=== PATIENT | male | born 1960 | race Caucasian/White ===

== ENCOUNTER 2019-12-10 14:20 | Emergency (ER) | payer OTHER, SELFPAY ==
[2019-12-10 14:25] VITALS: BP 164/84; PULSE 69; RESP 18; TEMP 36.6; O2SAT 99; BMI 31.1
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
--- NOTE | 2019-12-10 15:05 | DI.RAD.S_ITS ---
PROCEDURE: XR CHEST 1V INDICATIONS: elevated blood sugar TECHNIQUE: One view of the chest was acquired. COMPARISON: None. FINDINGS: Surgical changes and devices: None. Lungs and pleura: Lungs are clear. No pleural effusions or pneumothorax. Mediastinum: Mediastinal contours appear normal. Heart size is normal. Bones and chest wall: No suspicious bony lesions. Overlying soft tissues appear unremarkable. Degenerative changes of the spine and shoulders are not adequately evaluated. IMPRESSION: No acute cardiopulmonary process is evident. Dictated by: Hakeem Damon M.D. on 12/10/2019 at 14:56 Approved by: Hakeem Damon M.D. on 12/10/2019 at 14:56
--- NOTE | 2019-12-10 15:16 | PC.NURSE ---
Patient in room with DENTON Lujan. Right hand is swollen, red, and tender to touch. Bitten by Granddaughter's kitten yesterday. Kitten 6 months old and has not had its' shots.
[2019-12-10] MEDS: SODIUM CHLORIDE 0.9% 1,000 ML 1000 ML IV (15:26)
[2019-12-10 15:28] LABS: Add Manual Diff / Slide Review NO; Basophils Absolute Auto 0 /uL (0-100); Basophils Percent Auto 0.4 % (0-2); Eosinophils Absolute Auto 300 /uL (0-450); Eosinophils Percent Auto 3.3 % (2-4); Hemoglobin 15.6 g/dL (13.5-17.5); Lymphocytes Absolute Auto 3700 /uL (1100-4500); Lymphocytes Percent Auto 38.3 % (25-40); Mean Corpuscular HGB Conc 34.7 % (30-36); Mean Corpuscular Volume 86.6 fL (80-100); Monocytes Absolute Auto 1100 /uL (0-900); Monocytes Percent Auto 11.2 % (3-14); Neutrophils Absolute Auto 4500 /uL (1500-7000); Neutrophils Percent Auto 46.8 % (50-75); Platelet Count 276 X10^3/uL (150-400); Red Blood Cell Count 5.19 X10^6/uL (4.5-5.9); Red Cell Distribution Width 13.3 % (11.6-14.8); White Blood Cell Count 9.6 X10^3/uL (4.5-11.0)
[2019-12-10 15:30] VITALS: BP 148/93; PULSE 64; RESP 18; O2SAT 97
[2019-12-10 15:30] LABS: Alanine Aminotransferase 44 IU/L (<50); Albumin 4.3 g/dL (3.5-5.0); Albumin Globulin Ratio 1.2 (1.0-2.8); Alkaline Phosphatase 101 U/L (38-126); Aspartate Aminotransferase 34 IU/L (17-59); BUN Creatinine Ratio 17.6 (6-22); Bilirubin Total 0.6 mg/dL (0.2-1.3); Blood Urea Nitrogen 19 mg/dL (9-20); Calcium 9.2 mg/dL (8.4-10.2); Carbon Dioxide 21 mmol/L (22-32); Chloride 103 mmol/L (98-107); Estimated Glomerular Filt Rate > 60.0 mL/min (>60); Globulin 3.6 g/dL (1.7-4.1); Glucose 333 mg/dL (80-110); HEMOLYSIS 41 (0-50); Sodium 134 mmol/L (137-145); Total Protein 7.9 g/dL (6.3-8.2)
[2019-12-10 15:35] LABS: Ketones (Beta-Hydroxybutyrate) 0.09 mmol/L (<0.27)
[2019-12-10 15:42] LABS: HCO3 VBG 24 mmol/L (23-28); Oxygen Saturation VBG 98 % (70-75); PO2 VBG 88 mmHg (35-45); Total CO2 VBG 25 mmol/L (24-29); pH VBG 7.49 (7.33-7.43)
[2019-12-10 15:46] LABS: Procalcitonin 0.06 ng/mL (<0.5)
[2019-12-10 15:47] LABS: Hemoglobin A1C% w Est Avg Glu 9.8 % (4.0-6.0)
--- NOTE | 2019-12-10 16:51 | PC.NURSE ---
Blood glucose was taken at 14:16. Results: 211
[2019-12-10 17:17] LABS: Bacteria Urine None Seen; RBC Urine None Seen (0-5/HPF); WBC Urine None Seen (0-5/HPF)
[2019-12-10 17:28] LABS: Culture Indicated Urine Cult Not Indicated; Urine Comments Microscopic Normal
--- NOTE | 2019-12-10 17:39 | PC.NURSE ---
Patient is in room and somewhat cooperative. He has consented to urine and blood samples but does not want any medications.
[2019-12-10 17:47] VITALS: BP 172/90; PULSE 62; RESP 18; O2SAT 98
== END 2019-12-10 18:03 | disposition home or self-care (01) ==
PROVIDERS: Emergency Provider Emergency Medicine
DX: E11.65 Type 2 diabetes mellitus with hyperglycemia (principal)
CPT/HCPCS: 36415; 71045; 80053; 81003; 81015; 82009; 82805; 82962; 83036; 84145; 85025; 93005; 96360; 99284

== ENCOUNTER 2020-10-29 13:54 | Emergency (ER) | payer OTHER, SELFPAY ==
[2020-10-29] VITALS (10 sets, daily range): BP systolic 125–152; BP diastolic 74–92; PULSE 68–86; RESP 11–19; TEMP 36.3; O2SAT 95–99; BMI 28.5
--- NOTE | 2020-10-29 14:14 | DI.RAD.S_ITS ---
PROCEDURE: XR CHEST 1V INDICATIONS: chest pain TECHNIQUE: One view of the chest was acquired. COMPARISON: [facility], CR, XR CHEST 1V, 12/10/2019, 15:28. FINDINGS: Surgical changes and devices: None. Lungs and pleura: On this semiupright portable chest examination, no large pneumothorax or large pleural effusions are seen. No focal infiltrates are seen. Mediastinum: Mediastinal contours appear normal. Heart size is normal. Bones and chest wall: No suspicious bony lesions. S-shaped scoliotic curvature is seen. Age-appropriate bony degenerative changes are seen. Overlying soft tissues appear unremarkable. IMPRESSION: Portable chest within normal limits. Dictated by: Raul Gill M.D. on 10/29/2020 at 13:43 Approved by: Raul Gill M.D. on 10/29/2020 at 13:44
[2020-10-29 14:32] LABS: Add Manual Diff / Slide Review NO; Basophils Absolute Auto 100 /uL (0-100); Basophils Percent Auto 0.7 % (0-2); Eosinophils Absolute Auto 200 /uL (0-450); Eosinophils Percent Auto 1.2 % (2-4); Hematocrit 48.9 % (41-53); Hemoglobin 16.4 g/dL (13.5-17.5); Lymphocytes Absolute Auto 3300 /uL (1100-4500); Mean Corpuscular HGB Conc 33.4 % (30-36); Mean Corpuscular Hemoglobin 29.3 PG (26-34); Mean Corpuscular Volume 87.6 fL (80-100); Monocytes Absolute Auto 1200 /uL (0-900); Monocytes Percent Auto 8.5 % (3-14); Neutrophils Absolute Auto 9100 /uL (1500-7000); Neutrophils Percent Auto 65.6 % (50-75); Platelet Count 285 X10^3/uL (150-400); Red Blood Cell Count 5.59 X10^6/uL (4.5-5.9); Red Cell Distribution Width 13.9 % (11.6-14.8); White Blood Cell Count 13.8 X10^3/uL (4.5-11.0)
[2020-10-29 14:38] LABS: Prothrombin Time 11.4 SECONDS (10.1-12.7)
[2020-10-29 14:41] LABS: PTT Partial Thromboplastin Tim 30 SECONDS (26.4-36.2)
[2020-10-29 14:42] LABS: Alanine Aminotransferase 33 IU/L (<50); Albumin 4.7 g/dL (3.5-5.0); Albumin Globulin Ratio 1.2 (1.0-2.8); Alkaline Phosphatase 79 U/L (38-126); Aspartate Aminotransferase 28 IU/L (17-59); BUN Creatinine Ratio 23.3 (6-22); Bilirubin Total 0.7 mg/dL (0.2-1.3); Blood Urea Nitrogen 28 mg/dL (9-20); Calcium 9.8 mg/dL (8.4-10.2); Carbon Dioxide 24 mmol/L (22-32); Chloride 101 mmol/L (98-107); Creatine Kinase 88 U/L (55-170); Estimated Glomerular Filt Rate > 60.0 mL/min (>60); Globulin 3.8 g/dL (1.7-4.1); Glucose 183 mg/dL (80-110); HEMOLYSIS < 15 (0-50); Lipase 440 U/L (23-300); Potassium 3.9 mmol/L (3.4-5.1); Sodium 137 mmol/L (137-145); Total Protein 8.5 g/dL (6.3-8.2)
[2020-10-29 14:45] LABS: COVID19 -Nasal RAPID Negative (Negative)
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
[2020-10-29] MEDS: ASPIRIN 81 MG CHEW TAB 324 MG PO (15:20)
[2020-10-29 15:26] LABS: Troponin I 0.488 ng/mL (0.01-0.034)
[2020-10-29] MEDS: CLOPIDOGREL 75 MG TABLET 300 MG PO (15:48)
[2020-10-29] MEDS: HEPARIN 5,000 UNIT/ML VIAL 5000 UNIT IV (15:48)
[2020-10-29] MEDS: ATORVASTATIN 20 MG TABLET 40 MG PO (15:51)
[2020-10-29] MEDS: HEPARIN DRIP 25,000 UNIT/500 ML IV.SOLN 22.861 UNIT IV (15:51)
== END 2020-10-29 17:35 | disposition short-term general hospital (02) ==
PROVIDERS: Emergency Provider Emergency Medicine
DX: I21.4 Non-ST elevation (NSTEMI) myocardial infarction (principal)
CPT/HCPCS: 36415; 71045; 80053; 82550; 83690; 84484; 85025; 85610; 85730; 87635; 93005; 96365; 96366; 99284; C9803; J1644

== ENCOUNTER 2021-04-05 14:00 | Outpatient (RCR) | payer OTHER, SELFPAY | END 2021-04-05 16:00 | LOC: CAR 14:00 | PROVIDERS: PCP Family Medicine; Referring Provider Internal Medicine Cardiovascular Disease; Visit Provider Internal Medicine Cardiovascular Disease | DX: Z95.1 Presence of aortocoronary bypass graft (principal); I25.119 Atherosclerotic heart disease of native coronary artery with unspecified angina pectoris | CPT/HCPCS: 93798 ==

== ENCOUNTER → 2021-10-01 09:31 | Outpatient (CLI) | payer OTHER, SELFPAY ==
[2021-10-01 10:50] LABS: COVID19 -Nasal RAPID Negative (Negative)
== END ==
PROVIDERS: PCP Family Medicine; Visit Provider Surgery
DX: Z01.812 Encounter for preprocedural laboratory examination (principal); Z20.822 Contact with and (suspected) exposure to COVID-19
CPT/HCPCS: 87635; C9803

== ENCOUNTER 2021-10-02 09:15 | Day surgery (SDC) | payer OTHER, SELFPAY ==
[2021-10-02] VITALS (7 sets, daily range): BP systolic 120–133; BP diastolic 79–93; PULSE 59–69; RESP 13–22; TEMP 35.8–36.8; O2SAT 96–98; BMI 30.5
[2021-10-02] MEDS: LACTATED RINGERS 1,000 ML 200 ML IV (09:52)
--- NOTE | 2021-10-02 10:48 | PM.HP.1 ---
History of Present Illness History of Present Illness Date Patient Seen: 10/02/21 Time Patient Seen: 10:48 Chief complaint: SDC Narrative: The patient presents for colorectal sreening. He had a previous colonoscopy 12 years ago which was normal. He had a recent positive FIT. No personal or family history of colon cancer. On further history denies any recent gastrointestinal symptoms. No nausea, vomiting, abdominal pain, loss of appetite, unexplained weight loss, change in bowel habits, diarrhea, constipation, melena, hematochezia, or bright red blood per rectum. Patient History Medical History Diabetes Surgical History History of krystina hole surgery (~1989) History of open heart surgery (~2020) Family & Social History Social History: household members spouse Tobacco & Substance use: Smoking Status Never smoker alcohol intake current alcohol intake frequency 0-2 drinks per day Substance Use Type does not use Meds Home Medications and Allergies Home Medications Medication Instructions Recorded Confirmed Type aspirin 81 mg chewable tablet 162 mg PO DAILY 10/02/21 10/02/21 History atorvastatin 80 mg tablet 80 mg PO DAILY 10/02/21 10/02/21 History cinnamon bark 500 mg capsule 1,000 mg PO QPM 10/02/21 10/02/21 History (Cinnamon) cinnamon bark 500 mg capsule 2,000 mg PO QAM 10/02/21 10/02/21 History (Cinnamon) furosemide 20 mg tablet 20 mg PO DAILY 10/02/21 10/02/21 History metformin 500 mg tablet 1,000 mg PO BID 10/02/21 10/02/21 History metoprolol succinate 25 mg 25 mg PO DAILY 10/02/21 10/02/21 History tablet,extended release 24 hr potassium chloride 10 mEq 10 meq PO DAILY 10/02/21 10/02/21 History tablet,extended release(part/cryst) Allergies Allergy/AdvReac Type Severity Reaction Status Date / Time No Known Drug Allergies Allergy Verified 10/02/21 09:41 Exam Vital Signs (past 8 hours): - 10/02/21 09:42 Temperature 98.2 F Pulse Rate 69 Respiratory Rate 18 Blood Pressure 120/85 Pulse Oximetry 97 Oxygen Delivery Method Room Air Narrative Exam Narrative: GENERAL: Obese male in no apparent distress HEENT: No scleral icterus CV: Regular rate, no peripheral edema LUNGS: No increased work of breathing. Patient speaks in full sentences without oxygen support. ABDOMEN: Soft, non-tender, non-distended NEURO: Nonfocal, normal strength SKIN: Warm and dry Assessment & Plan Assessment and plan (1) Positive FIT (fecal immunochemical test): Status: Acute Assessment & Plan narrative: Colonoscopy is indicated following a positive fecal immunochemical test. Technical details were discussed. Risks, benefits, alternatives explained. Risks including but not limited to myocardial infarction, aspiration, bleeding, pain, missed lesion, incomplete examination, need for further radiographic studies, colonic perforation, and need for major abdominal surgery were discussed. All questions were answered to their satisfaction, and they are in agreement with this plan. Time Spent With Patient Critical Care time: I spent a total of [] minutes of critical care time on this patient's care today; this time is exclusive of procedural time.
--- NOTE | 2021-10-02 11:03 | SUR.OPER ---
TOLERATED PROCEDURE WELL
[2021-10-02] MEDS: fentaNYL 250 MCG/5 ML INJ IV (11:05)
[2021-10-02] MEDS: MIDAZOLAM 5 MG/5 ML VIAL IV (11:06)
--- NOTE | 2021-10-02 11:31 | P.OP.COLON_ITS ---
Operative Date/Time/Diagnoses Date of procedure: 10/02/21 Time of procedure: 11:31 Pre-op diagnosis: Positive FIT Post-op diagnosis: same Procedure & Clinicians Study performed: Colonoscopy Same procedure as scheduled: Yes Indications: Positive FIT Surgeon: Thierry Corral Procedure Notes Procedure in detail: Medications: Conscious sedation using 5 mg IV midazolam and 100mcg IV of fentanyl The history and physical was performed/updated and the patient is ASA class is 2. The procedure was discussed in detail with the patient. Potential risks complications including infection, bleeding, missed diagnosis, perforation, need for surgery, and were explained. Their questions were answered and informed consent was obtained. Patient was brought to the procedure room and placed standard monitoring equipment. The patient's vital signs were monitored continuously throughout the entire procedure. Prior to starting time-out was performed. The patient was placed in the left lateral recumbent position. Procedural sedation was a dministered. Examination began with a thorough inspection of the perianal area there was no evidence of fissures, fistulae, external hemorrhoids or cutaneous malignancy. The colonoscopy scope was then placed into the anal canal and was advanced to the cecum, which was identified by the ileocecal valve, the appendiceal orifice and the confluence of the taenia. The scope was then slowly withdrawn examining colon thoroughly in all directions, irrigating it of any residual stool. FINDINGS 1. No masses or polyps 2. Tortuous proximal colon The patient tolerated the procedure well. They will be discharged once criteria are met. The prep was of good/excellent quality. The withdrawl time was 7 minutes. The sedation time was 35 minutes. Specimen(s): none sent Complications: none Impression: Normal colonoscopy Post-procedure Recommendations: Colonoscopy in 10 years Disposition: same day surgery
--- NOTE | 2021-10-02 11:49 | SUR.PHASEI ---
Belly hard, Bowel tones tympanic sounding, pt denies pain. Dr. Shayna fenton.
--- NOTE | 2021-10-02 12:15 | SUR.PHASEII ---
Patient received from Phase I nurse s/p colonoscopy; patient has distended abdomen with hypoactive bowel sounds. Patient denies any pain or nausea but c/o abdominal pressure 5/10. Patient encouraged to sit on the toilet in Phase II to expel gas. No distress noted. Per conversation with , states patient's abdomen was distended after the consumption of oral prep yesterday. Will continue to monitor. Dr Shayna fenton.
== END 2021-10-02 12:55 | disposition home or self-care (01) ==
PROVIDERS: PCP Family Medicine; Referring Provider Surgery; Visit Provider Surgery
PROC: 0DJD8ZZ Inspection of Lower Intestinal Tract, Via Natural or Artificial Opening Endoscopic (ICD-10-PCS; CPT 45378; principal; 2021-10-02 10:45)
DX: R19.5 Other fecal abnormalities (principal); E11.9 Type 2 diabetes mellitus without complications; Z79.84 Long term (current) use of oral hypoglycemic drugs
CPT/HCPCS: 45378; 82962; 99152; 99153; J2250; J3010

== ENCOUNTER 2021-12-09 22:51 | Emergency (ER) | payer OTHER, SELFPAY ==
[2021-12-09 22:55] VITALS: BP 135/85; PULSE 79; RESP 18; TEMP 36.4; O2SAT 97; BMI 30.5
[2021-12-09 23:08] VITALS: PULSE 72; RESP 24; O2SAT 97
--- NOTE | 2021-12-09 23:10 | DI.RAD.S_ITS ---
PROCEDURE: XR CHEST 1V INDICATIONS: SOB TECHNIQUE: One view of the chest was acquired. COMPARISON: [facility], CR, XR CHEST 1V, 10/29/2020, 14:34. FINDINGS: Surgical changes and devices: Postsurgical changes are demonstrated in the mediastinum compatible with prior CABG. There is disruption of the superior median sternotomy wire. Lungs and pleura: Lungs are clear. No pleural effusions or pneumothorax. Mediastinum: Mediastinal contours appear normal. Heart size is normal. Bones and chest wall: No suspicious bony lesions. Overlying soft tissues appear unremarkable. IMPRESSION: 1. No acute cardiopulmonary disease. Dictated by: Barney Live M.D. on 12/09/2021 at 23:52 Approved by: Barney Live M.D. on 12/09/2021 at 23:53
[2021-12-09 23:20] LABS: Add Manual Diff / Slide Review NO; Basophils Absolute Auto 100 /uL (0-100); Basophils Percent Auto 0.9 % (0-2); Eosinophils Absolute Auto 700 /uL (0-450); Eosinophils Percent Auto 4.6 % (2-4); Hematocrit 44.8 % (41-53); Hemoglobin 15.2 g/dL (13.5-17.5); Lymphocytes Absolute Auto 3400 /uL (1100-4500); Lymphocytes Percent Auto 23.4 % (25-40); Mean Corpuscular HGB Conc 33.9 % (30-36); Mean Corpuscular Hemoglobin 29.8 PG (26-34); Mean Corpuscular Volume 87.9 fL (80-100); Monocytes Absolute Auto 1400 /uL (0-900); Monocytes Percent Auto 9.8 % (3-14); Neutrophils Absolute Auto 8900 /uL (1500-7000); Neutrophils Percent Auto 61.3 % (50-75); Platelet Count 302 X10^3/uL (150-400); Red Blood Cell Count 5.09 X10^6/uL (4.5-5.9); Red Cell Distribution Width 13.9 % (11.6-14.8); White Blood Cell Count 14.5 X10^3/uL (4.5-11.0)
--- NOTE | 2021-12-09 23:28 | ED.GENADULT ---
HPI - General Adult General Chief complaint: Shortness of Breath/Dyspnea Stated complaint: SOB nausea, Time Seen by Provider: 12/09/21 23:07 Source: patient and family Mode of arrival: Ambulatory History of Present Illness HPI narrative: 61-year-old male. History of coronary artery disease. Crd-eteecwy-wtskhpqxm diabetic. Approximately 1 year ago he was seen in this department. Sent to [facility] with a diagnosis of a non ST elevation DC. He states he had a cardiac catheterization while there and was subsequently sent to [facility] where he underwent a coronary artery bypass graft. Has been doing well since then. He states that this evening he was walking down some stairs when he had a fairly sudden onset of shortness of breath. No chest pain. No lightheadedness. The shortness of breath was to the point where he had to lay down. Lasted approximately 30 minutes and then gradually resolved. By the time that I evaluated the patient is symptoms had completely resolved he was feeling back to baseline. He did recently have a car ride to [place] and back. He denies any fevers. No palpitations. No lightheadedness. No change in any swelling in his lower extremities. No abdominal pain. No nausea vomiting. Related Data Home Medications Medication Instructions Recorded Confirmed aspirin 81 mg chewable tablet 162 mg PO DAILY 10/02/21 10/02/21 atorvastatin 80 mg tablet 80 mg PO DAILY 10/02/21 10/02/21 cinnamon bark 500 mg capsule 1,000 mg PO QPM 10/02/21 10/02/21 (Cinnamon) cinnamon bark 500 mg capsule 2,000 mg PO QAM 10/02/21 10/02/21 (Cinnamon) furosemide 20 mg tablet 20 mg PO DAILY 10/02/21 10/02/21 metformin 500 mg tablet 1,000 mg PO BID 10/02/21 10/02/21 metoprolol succinate 25 mg 25 mg PO DAILY 10/02/21 10/02/21 tablet,extended release 24 hr potassium chloride 10 mEq 10 meq PO DAILY 10/02/21 10/02/21 tablet,extended release(part/cryst) Allergies Allergy/AdvReac Type Severity Reaction Status Date / Time No Known Drug Allergies Allergy Verified 10/02/21 09:41 Review of Systems Constitutional Constitutional: Reports system reviewed and no additional complaints, except as documented Cardiovascular Cardiovascular: Reports system reviewed and no additional complaints, except as documented Respiratory Respiratory: Reports system reviewed and no additional complaints, except as documented Gastrointestinal Gastrointestinal: Reports system reviewed and no additional complaints, except as documented Musculoskeletal Musculoskeletal: Reports system reviewed and no additional complaints, except as documented Integumentary/Breasts Skin/Breast: Reports system reviewed and no additional complaints, except as documented Neurologic Neurologic: Reports system reviewed and no additional complaints, except as documented Hematologic/Lymphatic On Anticoagulants: No Patient History Medical History Coronary artery disease Diabetes Surgical History History of krystina hole surgery (~1989) History of open heart surgery (~2020) Social History household members: spouse Smoking Status: Never smoker alcohol intake: current Smoking Status: Never smoker alcohol intake frequency: 0-2 drinks per day Substance Use Type: does not use Exam Initial Vital Signs Initial Vital Signs: Vital Signs Temperature 97.5 F L 12/09/21 22:55 Pulse Rate 79 12/09/21 22:55 Respiratory Rate 18 12/09/21 22:55 Blood Pressure 135/85 12/09/21 22:55 Pulse Oximetry 97 12/09/21 22:55 HENMT Head: normal to inspection and normocephalic Resp Effort & Inspection: normal respiratory effort Auscultation: clear to auscultation bilaterally Cardio Rate: regular rate Rhythm: regular rhythm GI Inspection: normal to inspection Palpation: soft and No tender Skin General: no rashes or lesions noted Neuro General: patient alert, patient awake and moves all extremities Extrem General: capillary refill normal Psych Appearance: grossly normal and well kempt Course Orders Ordered: ED Orders 12/09/21 23:05 Complete Blood Count AUTO DIFF Stat Comprehensive Metabolic Panel Stat D Dimer Stat Lipase Stat NT-proBNP (BNP-Adult 18+) Stat Troponin & CK Cardiac Panel Stat 12/09/21 23:10 XR chest 1V Stat EKG-12 Lead Stat 12/10/21 02:00 Troponin I Stat Vital Signs Vital signs: Vital Signs - 8 hr 12/09/21 22:55 12/09/21 23:08 12/09/21 23:30 Temperature 97.5 F L Pulse Rate 79 72 70 Respiratory Rate 18 24 15 Blood Pressure 135/85 Pulse Oximetry 97 97 97 12/10/21 00:00 12/10/21 00:30 12/10/21 01:00 Temperature Pulse Rate 70 69 70 Respiratory Rate 21 15 22 Blood Pressure Pulse Oximetry 97 94 97 12/10/21 01:30 Temperature Pulse Rate 73 Respiratory Rate 16 Blood Pressure Pulse Oximetry 95 Medical Decision Making Medical Records Medical records reviewed: Yes I reviewed the patient's medical records. Lab Data Lab results reviewed: Yes I reviewed the patient's lab results. Result diagrams: 12/09/21 23:05 12/09/21 23:05 Labs: Lab Results 12/09/21 12/09/21 12/09/21 Range/Units 23:05 23:05 23:05 WBC 14.5 H (4.5-11.0) X10^3/uL RBC 5.09 (4.5-5.9) X10^6/uL Hgb 15.2 (13.5-17.5) g/dL Hct 44.8 (41-53) % MCV 87.9 (80-100) fL MCH 29.8 (26-34) PG MCHC 33.9 (30-36) % RDW 13.9 (11.6-14.8) % Plt Count 302 (150-400) X10^3/uL Neut % (Auto) 61.3 (50-75) % Lymph % (Auto) 23.4 L (25-40) % [place] % (Auto) 9.8 (3-14) % Eos % (Auto) 4.6 H (2-4) % Baso % (Auto) 0.9 (0-2) % Neut # (Auto) 8900 H (5800-5489) /uL Lymph # (Auto) 3400 (4866-4549) /uL [place] # (Auto) 1400 H (0-900) /uL Eos # (Auto) 700 H (0-450) /uL Baso # (Auto) 100 (0-100) /uL D-Dimer 208 (<230) ng/mL Sodium 136 L (137-145) mmol/L Potassium 4.2 (3.4-5.1) mmol/L Chloride 105 (98-107) mmol/L Carbon Dioxide 19 L (22-32) mmol/L BUN 23 H (9-20) mg/dL Creatinine 1.22 (0.66-1.25) mg/dL Estimated GFR > 60 (>60) mL/min BUN/Creatinine Ratio 18.9 (6-22) Glucose 183 H (80-110) mg/dL Calcium 8.7 (8.4-10.2) mg/dL Total Bilirubin 0.6 (0.2-1.3) mg/dL AST 45 (17-59) IU/L ALT 59 H (<50) IU/L Alkaline Phosphatase 83 (38-126) U/L Total Creatine Kinase 70 (55-170) U/L CK-MB (CK-2) TNP CK-MB (CK-2) Rel Index TNP Troponin I < 0.012 (0.01-0.034) ng/mL NT-Pro-B Natriuret Pep 139 H (<125) pg/mL Total Protein 7.6 (6.3-8.2) g/dL Albumin 4.3 (3.5-5.0) g/dL Globulin 3.3 (1.7-4.1) g/dL Albumin/Globulin Ratio 1.3 (1.0-2.8) Lipase 324 H (23-300) U/L 12/10/21 Range/Units 02:00 WBC (4.5-11.0) X10^3/uL RBC (4.5-5.9) X10^6/uL Hgb (13.5-17.5) g/dL Hct (41-53) % MCV (80-100) fL MCH (26-34) PG MCHC (30-36) % RDW (11.6-14.8) % Plt Count (150-400) X10^3/uL Neut % (Auto) (50-75) % Lymph % (Auto) (25-40) % [place] % (Auto) (3-14) % Eos % (Auto) (2-4) % Baso % (Auto) (0-2) % Neut # (Auto) (4476-0244) /uL Lymph # (Auto) (4616-1473) /uL [place] # (Auto) (0-900) /uL Eos # (Auto) (0-450) /uL Baso # (Auto) (0-100) /uL D-Dimer (<230) ng/mL Sodium (137-145) mmol/L Potassium (3.4-5.1) mmol/L Chloride (98-107) mmol/L Carbon Dioxide (22-32) mmol/L BUN (9-20) mg/dL Creatinine (0.66-1.25) mg/dL Estimated GFR (>60) mL/min BUN/Creatinine Ratio (6-22) Glucose (80-110) mg/dL Calcium (8.4-10.2) mg/dL Total Bilirubin (0.2-1.3) mg/dL AST (17-59) IU/L ALT (<50) IU/L Alkaline Phosphatase (38-126) U/L Total Creatine Kinase (55-170) U/L CK-MB (CK-2) CK-MB (CK-2) Rel Index Troponin I < 0.012 (0.01-0.034) ng/mL NT-Pro-B Natriuret Pep (<125) pg/mL Total Protein (6.3-8.2) g/dL Albumin (3.5-5.0) g/dL Globulin (1.7-4.1) g/dL Albumin/Globulin Ratio (1.0-2.8) Lipase (23-300) U/L Imaging Data Chest x-ray: Radiologist's Impression: [address] [address] XRay Report Signed Patient: Neptali Ascencio MR#: [id number] : 1960 Acct:[id number] Age/Sex: 61 / M Date of Service: 12/09/21 Loc: ED Accession Number: [id number] ?? Procedure: XR chest 1V Ordering Provider: Dung Irene D.O. PROCEDURE:? XR CHEST 1V ? INDICATIONS:? SOB ? TECHNIQUE:? One view of the chest was acquired.? ? COMPARISON:? [facility], [facility], XR CHEST 1V, 10/29/2020, 14:34. ? FINDINGS:? ? Surgical changes and devices:? Postsurgical changes are demonstrated in the mediastinum compatible with prior CABG.? There is disruption of the superior median sternotomy wire.? ? ? Lungs and pleura:? Lungs are clear.? No pleural effusions or pneumothorax.? ? Mediastinum:? Mediastinal contours appear normal.? Heart size is normal.? ? Bones and chest wall:? No suspicious bony lesions.? Overlying soft tissues appear unremarkable.? ? IMPRESSION:? ? 1. No acute cardiopulmonary disease.? ? ? Dictated by: Barney Live M.D. on 12/09/2021 at 23:52 ? ? Approved by: Barney Live M.D. on 12/09/2021 at 23:53? ECG Data Attestation: I personally reviewed and interpreted this ECG as follows: Interpretation: Sinus rhythm Ventricular rate is 70 to Normal axis Normal QRS Normal QTC No ST T wave changes MDM Narrative Medical decision making narrative: Patient has been asymptomatic since arrival here to the emergency department. His EKG is unremarkable. Troponins negative x2. No arrhythmia noted. Chest x-ray is unremarkable. Patient denied chest pain at the time of his symptoms. His D-dimer was negative. Low suspicion for pneumonia. He denied the sensation of palpitations when he was experiencing his symptoms however arrhythmia could potentially be a possibility. He does have a learning and development specialist that he sees on a regular basis and he will contact his learning and development specialist office later today. He was given return precautions. He expressed understanding and agreement. Discharge Plan Departure Patient Disposition: Home Clinical Impression: Shortness of Breath Instructions: DI for Shortness of Breath Activity Restrictions/Additional Instructions: Recommend that you continue to take all of your medications as directed. When your learning and development specialist office opens later today recommend that you contact them for a follow-up. Return to the emergency department for any new or worsening symptoms Prescriptions: No Action atorvastatin 80 mg tablet 80 mg PO DAILY 0RF aspirin 81 mg tablet,chewable 162 mg PO DAILY 0RF Label Comments: CHEW AND SWALLOW 2 TABLETS BY MOUTH DAILY furosemide 20 mg tablet 20 mg PO DAILY 0RF metoprolol succinate 25 mg tablet extended release 24 hr 25 mg PO DAILY 0RF Label Comments: TAKE 1 TABLET BY MOUTH DAILY potassium chloride 10 mEq tablet,ER particles/crystals 10 meq PO DAILY 0RF Label Comments: TAKE 1 TABLET BY MOUTH DAILY metformin 500 mg tablet 1,000 mg PO BID 0RF cinnamon bark [Cinnamon] 500 mg Capsule 2,000 mg PO QAM 0RF cinnamon bark [Cinnamon] 500 mg Capsule 1,000 mg PO QPM 0RF Referrals: Umang Marshall DO [Primary Care Provider] - Stand Alone Forms: Work Release Note
[2021-12-09 23:29] LABS: Alanine Aminotransferase 59 IU/L (<50); Albumin 4.3 g/dL (3.5-5.0); Albumin Globulin Ratio 1.3 (1.0-2.8); Alkaline Phosphatase 83 U/L (38-126); Aspartate Aminotransferase 45 IU/L (17-59); BUN Creatinine Ratio 18.9 (6-22); Bilirubin Total 0.6 mg/dL (0.2-1.3); Blood Urea Nitrogen 23 mg/dL (9-20); Calcium 8.7 mg/dL (8.4-10.2); Carbon Dioxide 19 mmol/L (22-32); Chloride 105 mmol/L (98-107); Creatine Kinase 70 U/L (55-170); Estimated Glomerular Filt Rate > 60 mL/min (>60); Globulin 3.3 g/dL (1.7-4.1); Glucose 183 mg/dL (80-110); HEMOLYSIS 29 (0-50); Potassium 4.2 mmol/L (3.4-5.1); Sodium 136 mmol/L (137-145); Total Protein 7.6 g/dL (6.3-8.2)
[2021-12-09 23:30] VITALS: PULSE 70; RESP 15; O2SAT 97
[2021-12-09 23:31] LABS: Lipase 324 U/L (23-300)
[2021-12-09 23:41] LABS: NT-proBNP (BNP-Adult 18+) 139 pg/mL (<125); Troponin I < 0.012 ng/mL (0.01-0.034)
[2021-12-09 23:45] LABS: D Dimer 208 ng/mL (<230)
[2021-12-10] VITALS: PULSE 70; RESP 21; O2SAT 97
[2021-12-10 00:30] VITALS: PULSE 69; RESP 15; O2SAT 94
[2021-12-10 01:00] VITALS: PULSE 70; RESP 22; O2SAT 97
[2021-12-10 01:30] VITALS: PULSE 73; RESP 16; O2SAT 95
[2021-12-10 02:00] VITALS: BP 103/68; PULSE 78; RESP 20; O2SAT 96
[2021-12-10 02:30] VITALS: BP 117/67; PULSE 76; RESP 16; O2SAT 95
[2021-12-10 02:30] LABS: Troponin I < 0.012 ng/mL (0.01-0.034)
== END 2021-12-10 02:51 | disposition home or self-care (01) ==
PROVIDERS: Emergency Provider Emergency Medicine; PCP Family Medicine
DX: R06.02 Shortness of breath (principal); I25.10 Atherosclerotic heart disease of native coronary artery without angina pectoris
CPT/HCPCS: 71045; 80053; 82550; 83690; 83880; 84484; 85025; 85379; 93005; 99283

== ENCOUNTER 2022-05-28 11:48 | Emergency (ER) | payer OTHER, SELFPAY ==
[2022-05-28] VITALS (10 sets, daily range): BP systolic 107–126; BP diastolic 67–79; PULSE 57–67; RESP 20; TEMP 36.2; O2SAT 92–97; BMI 29.1
--- NOTE | 2022-05-28 12:44 | DI.US.S_ITS ---
PROCEDURE: US PERIPH VENOUS LOW EXTREM LT INDICATIONS: PAIN TECHNIQUE: Real-time imaging, as well as color and pulse Doppler interrogation, were performed of the lower extremity deep veins from the inguinal ligament to the popliteal fossa. COMPARISON: None. FINDINGS: The common femoral, femoral and popliteal veins are normally compressible, and free of intraluminal thrombus. Color and pulse Doppler demonstrate normal phasic intraluminal flow. There is normal augmentation response to distal compression maneuver. IMPRESSION: No evidence of DVT. Dictated by: Jaquan Rodriguez M.D. on 05/28/2022 at 13:59 Approved by: Jaquan Rodriguez M.D. on 05/28/2022 at 14:01
--- NOTE | 2022-05-28 13:02 | ED.EXTPRO ---
HPI - Extremity Problem <ISRAEL HerreraP - Last Filed: 05/28/22 18:02> General Chief complaint: Extremity Problem,Nontraumatic Stated complaint: sent by certified physician assistant check for DVT blood sugar @60 Time Seen by Provider: 05/28/22 12:07 Source: patient Mode of arrival: Ambulatory History of Present Illness HPI Narrative: This is a 62-year-old male with history of CABG x4 in 2020, hyperlipidemia, hypertension, diabetes type 2, chronic kidney disease stage 3 with a TBI 30 years ago with no physical deficit who presents to the emergency department complaining of tenderness from his left lower extremity where his vein graft was completed on the medial aspect between his knee and ankle. He denies any recent fever or chills but endorses a cough, shortness of breath with exertion for the last 3-4 days, tenderness over this area and reports localized edema and tenderness without dependent lower extremity edema bilaterally. He has a history of heart failure with a NSTEMI in 2020 with subsequent CABG x4 and has been doing well since then. He denies any dizziness, no chest pain, states that he was short of breath while being active but reports that he is quite active at baseline so this is abnormal. He is COVID vaccinated x5, has a recent cardiac echo on 02/22/2022 with LVEF of 55%. He is not anticoagulated. Related Data Home Medications Medication Instructions Recorded Confirmed aspirin 81 mg chewable tablet 162 mg PO DAILY 10/02/21 10/02/21 atorvastatin 80 mg tablet 80 mg PO DAILY 10/02/21 10/02/21 cinnamon bark 500 mg capsule 1,000 mg PO QPM 10/02/21 10/02/21 (Cinnamon) cinnamon bark 500 mg capsule 2,000 mg PO QAM 10/02/21 10/02/21 (Cinnamon) furosemide 20 mg tablet 20 mg PO DAILY 10/02/21 10/02/21 metformin 500 mg tablet 1,000 mg PO BID 10/02/21 10/02/21 metoprolol succinate 25 mg 25 mg PO DAILY 10/02/21 10/02/21 tablet,extended release 24 hr potassium chloride 10 mEq 10 meq PO DAILY 10/02/21 10/02/21 tablet,extended release(part/cryst) Allergies Allergy/AdvReac Type Severity Reaction Status Date / Time No Known Drug Allergies Allergy Verified 10/02/21 09:41 Review of Systems <RACHNA Herrera - Last Filed: 05/28/22 18:02> Review of Systems Narrative: Review of systems is negative for acute abnormalities unless otherwise noted in HPI Patient History <RACHNA Herrera - Last Filed: 05/28/22 18:02> Medical History Coronary artery disease Diabetes Surgical History History of krystina hole surgery (~1989) History of open heart surgery (~2020) Social History household members: spouse Smoking Status: Never smoker alcohol intake: current Smoking Status: Never smoker alcohol intake frequency: 0-2 drinks per day Substance Use Type: does not use Exam <RACHNA Herrera - Last Filed: 05/28/22 18:02> Initial Vital Signs Initial Vital Signs: Vital Signs Temperature 97.1 F L 05/28/22 12:00 Pulse Rate 61 05/28/22 12:00 Respiratory Rate 20 05/28/22 12:00 Blood Pressure 115/76 05/28/22 12:00 Pulse Oximetry 97 05/28/22 12:00 Oxygen Delivery Method 05/28/22 12:00 <Manisha Bain DO - Last Filed: 06/02/22 04:48> Initial Vital Signs Initial Vital Signs: Vital Signs Temperature 97.1 F L 05/28/22 12:00 Pulse Rate 61 05/28/22 12:00 Respiratory Rate 20 05/28/22 12:00 Blood Pressure 115/76 05/28/22 12:00 Pulse Oximetry 97 05/28/22 12:00 Oxygen Delivery Method 05/28/22 12:00 Scores <RACHNA Herrera - Last Filed: 05/28/22 18:02> HEART Score Heart Score history: Moderately Suspicious Heart Score EKG: Normal Heart Score Age: 45-64 years old Heart Score risk factors: > 3 risk factors or hx of atherosclerotic disease Heart Score troponin: < or = to normal limit Heart Score Total: 4 Wells' Criteria for PE Clinical signs and symptoms of DVT: Yes PE is #1 Dx or equally likely: No Heart rate > 100: No Immobilization at least 3 days or surg in previous 4 weeks: No History of PE or DVT: No Hemoptysis: No Kenji' Criteria for DVT Active Cancer (Treatment within 6 months): No Bedridden recently >3 days or major surgery within 4 weeks: No Calf Swelling >3cm compared to other leg: No Collateral (nonvericose) superficial veins present: No Entire leg swollen: No Localized tenderness along the deep vein system: Yes Pitting edema, confined to symtomatic leg: No Paralysis, paresis, or recent plaster immobilization of ext: No Previously documented DVT: No Alternative dx to DVT as likely or more likely: No Jeremy criteria for DVT: 1 <Manisha Bain DO - Last Filed: 06/02/22 04:48> HEART Score Heart Score Total: 4 Jeremy Criteria for DVT Kenji' criteria for DVT: 1 Course <RACHNA Herrera - Last Filed: 05/28/22 18:02> Orders Ordered: ED Orders 05/28/22 12:44 US periph venous low extrem lt Stat EKG-12 Lead Stat 05/28/22 13:20 BNP [NT-proBNP (BNP-Adult 18+)] Stat CBC Auto Diff [Complete Blood Count AUTO DIFF] Stat CMP [Comprehensive Metabolic Panel] Stat CRP [C-Reactive Protein Quant] Stat Covid-19 + FLU A/B + RSV - PCR Stat D Dimer Stat Lipid Panel Stat PTT [Partial Thromboplastin Time] Stat Prothrombin Time INR Stat Troponin & CK Cardiac Panel Stat 05/28/22 13:58 Chest [XR chest 2V] Stat Vital Signs Vital signs: Vital Signs - 8 hr 05/28/22 12:00 05/28/22 12:12 05/28/22 12:30 Temperature 97.1 F L Pulse Rate 61 61 64 Respiratory Rate 20 Blood Pressure 115/76 Pulse Oximetry 97 96 96 Oxygen Delivery Method Room Air 05/28/22 13:00 05/28/22 13:01 05/28/22 13:01 Temperature Pulse Rate 59 L 57 L Respiratory Rate Blood Pressure 107/67 Pulse Oximetry 93 93 Oxygen Delivery Method 05/28/22 13:30 05/28/22 14:00 05/28/22 14:30 Temperature Pulse Rate 57 L 57 L 58 L Respiratory Rate Blood Pressure Pulse Oximetry 92 94 96 Oxygen Delivery Method 05/28/22 14:45 05/28/22 15:03 Temperature Pulse Rate 67 Respiratory Rate Blood Pressure 126/79 Pulse Oximetry 95 Oxygen Delivery Method <Manisha Bain DO - Last Filed: 06/02/22 04:48> Orders Ordered: ED Orders 05/28/22 12:44 US periph venous low extrem lt Stat EKG-12 Lead Stat 05/28/22 13:20 BNP [NT-proBNP (BNP-Adult 18+)] Stat CBC Auto Diff [Complete Blood Count AUTO DIFF] Stat CMP [Comprehensive Metabolic Panel] Stat CRP [C-Reactive Protein Quant] Stat Covid-19 + FLU A/B + RSV - PCR Stat D Dimer Stat Lipid Panel Stat PTT [Partial Thromboplastin Time] Stat Prothrombin Time INR Stat Troponin & CK Cardiac Panel Stat 05/28/22 13:58 Chest [XR chest 2V] Stat Vital Signs Vital signs: Vital Signs - 8 hr 05/28/22 12:00 05/28/22 12:12 05/28/22 12:30 Temperature 97.1 F L Pulse Rate 61 61 64 Respiratory Rate 20 Blood Pressure 115/76 Pulse Oximetry 97 96 96 Oxygen Delivery Method Room Air 05/28/22 13:00 05/28/22 13:01 05/28/22 13:01 Temperature Pulse Rate 59 L 57 L Respiratory Rate Blood Pressure 107/67 Pulse Oximetry 93 93 Oxygen Delivery Method 05/28/22 13:30 05/28/22 14:00 05/28/22 14:30 Temperature Pulse Rate 57 L 57 L 58 L Respiratory Rate Blood Pressure Pulse Oximetry 92 94 96 Oxygen Delivery Method 05/28/22 14:45 05/28/22 15:03 Temperature Pulse Rate 67 Respiratory Rate Blood Pressure 126/79 Pulse Oximetry 95 Oxygen Delivery Method MDM - Extremity (Nontraumatic) <ISRAEL HerreraP - Last Filed: 05/28/22 18:02> Lab Data Result diagrams: 05/28/22 13:20 05/28/22 13:20 Labs: Lab Results 05/28/22 05/28/22 05/28/22 Range/Units 13:20 13:20 13:20 WBC 10.6 (4.5-11.0) X10^3/uL RBC 5.17 (4.5-5.9) X10^6/uL Hgb 15.6 (13.5-17.5) g/dL Hct 44.9 (41-53) % MCV 86.9 (80-100) fL MCH 30.2 (26-34) PG MCHC 34.8 (30-36) % RDW 14.0 (11.6-14.8) % Plt Count 264 (150-400) X10^3/uL Neut % (Auto) 50.0 (50-75) % Lymph % (Auto) 33.7 (25-40) % Love % (Auto) 12.5 (3-14) % Eos % (Auto) 3.4 (2-4) % Baso % (Auto) 0.4 (0-2) % Neut # (Auto) 5300 (6057-8636) /uL Lymph # (Auto) 3600 (0865-3394) /uL Love # (Auto) 1300 H (0-900) /uL Eos # (Auto) 400 (0-450) /uL Baso # (Auto) 0 (0-100) /uL PT 11.7 (10.1-12.7) SECONDS INR 1.0 (0.9-1.3) APTT 27 (26-36) SECONDS D-Dimer 570 H (<500) ng/ml Sodium 138 (137-145) mmol/L Potassium 3.8 (3.4-5.1) mmol/L Chloride 103 (98-107) mmol/L Carbon Dioxide 26 (22-32) mmol/L BUN 29 H (9-20) mg/dL Creatinine 1.25 (0.66-1.25) mg/dL Estimated GFR > 60 (>60) mL/min BUN/Creatinine Ratio 23.2 H (6-22) Glucose 102 (80-110) mg/dL Calcium 8.8 (8.4-10.2) mg/dL Total Bilirubin 0.6 (0.2-1.3) mg/dL AST 49 (17-59) IU/L ALT 74 H (<50) IU/L Alkaline Phosphatase 84 (38-126) U/L Total Creatine Kinase 51 L (55-170) U/L CK-MB (CK-2) TNP CK-MB (CK-2) Rel Index TNP Troponin I < 0.012 (0.01-0.034) ng/mL C-Reactive Protein 1.5 H (<1.0) mg/dL NT-Pro-B Natriuret Pep (<125) pg/mL Total Protein 7.7 (6.3-8.2) g/dL Albumin 4.1 (3.5-5.0) g/dL Globulin 3.6 (1.7-4.1) g/dL Albumin/Globulin Ratio 1.1 (1.0-2.8) Triglycerides (35-150) mg/dL Cholesterol (140-199) mg/dL LDL Cholesterol, Calc (<100) mg/dL HDL Cholesterol (40-60) mg/dL SARS-CoV-2 (PCR) (Negative) Influenza A (RT-PCR) (NEGATIVE) Influenza B (RT-PCR) (NEGATIVE) RSV (PCR) (Negative) 05/28/22 05/28/22 05/28/22 Range/Units 13:20 13:20 13:20 WBC (4.5-11.0) X10^3/uL RBC (4.5-5.9) X10^6/uL Hgb (13.5-17.5) g/dL Hct (41-53) % MCV (80-100) fL MCH (26-34) PG MCHC (30-36) % RDW (11.6-14.8) % Plt Count (150-400) X10^3/uL Neut % (Auto) (50-75) % Lymph % (Auto) (25-40) % Love % (Auto) (3-14) % Eos % (Auto) (2-4) % Baso % (Auto) (0-2) % Neut # (Auto) (4448-4099) /uL Lymph # (Auto) (6180-8186) /uL Love # (Auto) (0-900) /uL Eos # (Auto) (0-450) /uL Baso # (Auto) (0-100) /uL PT (10.1-12.7) SECONDS INR (0.9-1.3) APTT (26-36) SECONDS D-Dimer (<500) ng/ml Sodium (137-145) mmol/L Potassium (3.4-5.1) mmol/L Chloride (98-107) mmol/L Carbon Dioxide (22-32) mmol/L BUN (9-20) mg/dL Creatinine (0.66-1.25) mg/dL Estimated GFR (>60) mL/min BUN/Creatinine Ratio (6-22) Glucose (80-110) mg/dL Calcium (8.4-10.2) mg/dL Total Bilirubin (0.2-1.3) mg/dL AST (17-59) IU/L ALT (<50) IU/L Alkaline Phosphatase (38-126) U/L Total Creatine Kinase (55-170) U/L CK-MB (CK-2) CK-MB (CK-2) Rel Index Troponin I (0.01-0.034) ng/mL C-Reactive Protein (<1.0) mg/dL NT-Pro-B Natriuret Pep 77 (<125) pg/mL Total Protein (6.3-8.2) g/dL Albumin (3.5-5.0) g/dL Globulin (1.7-4.1) g/dL Albumin/Globulin Ratio (1.0-2.8) Triglycerides 142 (35-150) mg/dL Cholesterol 104 L (140-199) mg/dL LDL Cholesterol, Calc 48 (<100) mg/dL HDL Cholesterol 28 L (40-60) mg/dL SARS-CoV-2 (PCR) Negative (Negative) Influenza A (RT-PCR) Flu a negative (NEGATIVE) Influenza B (RT-PCR) Flu b negative (NEGATIVE) RSV (PCR) Negative (Negative) Imaging Data US - DVT: Radiologist's Impression: PROCEDURE:? US PERIPH VENOUS LOW EXTREM LT ? INDICATIONS:? PAIN ? TECHNIQUE:? Real-time imaging, as well as color and pulse Doppler interrogation, were performed of the lower extremity deep veins from the inguinal ligament to the popliteal fossa.? ? COMPARISON:? None. ? FINDINGS:? The common femoral, femoral and popliteal veins are normally compressible, and free of intraluminal thrombus.? Color and pulse Doppler demonstrate normal phasic intraluminal flow.? There is normal augmentation response to distal compression maneuver. ? ? IMPRESSION:? No evidence of DVT.? ? ? Dictated by: Jaquan Rodriguez M.D. on 05/28/2022 at 13:59 ? ? Approved by: Jaquan Rodriguez M.D. on 05/28/2022 at 14:01 ? Chest x-ray: Radiologist's Impression: PROCEDURE:? XR CHEST 2V ? INDICATIONS:? exertional sob ? TECHNIQUE:? 2 views of the chest were acquired.? ? COMPARISON:? [facility], CR, XR CHEST 1V, 12/09/2021, 23:11. ? FINDINGS:? ? Surgical changes and devices:? Patient is status post median sternotomy.? The superior sternotomy wire is fractured as before. ? Lungs and pleura:? Lungs are clear.? No pleural effusions or pneumothorax.? ? Mediastinum:? Mediastinal contours are normal.? Heart size is normal.? ? Bones and chest wall:? No suspicious bony abnormalities.? Soft tissues appear unremarkable.? ? IMPRESSION:? No acute cardiopulmonary findings. ? ? Dictated by: Corin Tinoco M.D. on 05/28/2022 at 14:40 ? ? Approved by: Corin Tinoco M.D. on 05/28/2022 at 14:40 ? ECG Data Interpretation: EKG independently reviewed by myself at 1353 reveals sinus bradycardia at 55 bpm with regular axis and intervals. No STEMI, ST segment changes, arrhythmia, or acute ischemic changes. MDM Narrative Medical decision making narrative: This is a 62-year-old male who presents to the emergency department with concern about tenderness and edema over his left lower extremity vein harvest site for his coronary bypass x4 in 2020. He has a history of hypertension, hyperlipidemia, diabetes, NSTEMI recent echo with LVEF of 55%, he is not anticoagulated, He denies any recent chest pain but endorses a cough, exertional shortness of breath, tenderness at his left lower extremity graft site and is concerned for a DVT, upper respiratory illness and/or pulmonary embolism. His lab work overall is reassuring, there is no leukocytosis, anemia, Left lower extremity vein ultrasound Doppler is negative for DVT or inflammation. Age-Adjusted D-dimer for Venous Thromboembolism (VTE) from [employer] on 05/28/2022 RESULT SUMMARY: 640 ?g/L Age-adjusted D-dimer cutoff, FEU VTE unlikely Reported D-dimer is less than or equal to cutoff; consider alternative diagnosis INPUTS: Age ?> 62 years D-dimer level reported by lab ?> 570 ?g/L D-dimer unit type ?> 1 = FEU (unadjusted cutoff typically ~500 or 0.50) Patient's INR came back at 1.0, PT is 11.7 and PTT is 27, his D-dimer came back at 570, when corrected for age it is not clinically significant. His CRP is mildly elevated at 1.5, Patient's heart score is 3 Patient's chest x-ray is without acute cardiopulmonary abnormalities, no other significant findings on his lab work other than a mildly elevated CRP at 1.5, COVID influenza and RSV PCR all negative. Discuss with patient that is likely that he was dehydrated with a cold but this is not a blood clot in his left lower extremity, his BNP is not elevated, it was 77, that his D-dimer is not clinically significant but I recommend hydration, follow-up as needed, provider reassurance. Overall, patient's workup is not concerning, he is not had any EKG changes since his last EKG, recent echo is also reassuring. Discussed strict return precautions, follow-up with his primary care provider, and return for any new or worsening symptoms. <Manisha Bain, DO - Last Filed: 06/02/22 04:48> Lab Data Labs: Lab Results 05/28/22 05/28/22 05/28/22 Range/Units 13:20 13:20 13:20 WBC 10.6 (4.5-11.0) X10^3/uL RBC 5.17 (4.5-5.9) X10^6/uL Hgb 15.6 (13.5-17.5) g/dL Hct 44.9 (41-53) % MCV 86.9 (80-100) fL MCH 30.2 (26-34) PG MCHC 34.8 (30-36) % RDW 14.0 (11.6-14.8) % Plt Count 264 (150-400) X10^3/uL Neut % (Auto) 50.0 (50-75) % Lymph % (Auto) 33.7 (25-40) % Love % (Auto) 12.5 (3-14) % Eos % (Auto) 3.4 (2-4) % Baso % (Auto) 0.4 (0-2) % Neut # (Auto) 5300 (0220-2475) /uL Lymph # (Auto) 3600 (6164-8771) /uL Love # (Auto) 1300 H (0-900) /uL Eos # (Auto) 400 (0-450) /uL Baso # (Auto) 0 (0-100) /uL PT 11.7 (10.1-12.7) SECONDS INR 1.0 (0.9-1.3) APTT 27 (26-36) SECONDS D-Dimer 570 H (<500) ng/ml Sodium 138 (137-145) mmol/L Potassium 3.8 (3.4-5.1) mmol/L Chloride 103 (98-107) mmol/L Carbon Dioxide 26 (22-32) mmol/L BUN 29 H (9-20) mg/dL Creatinine 1.25 (0.66-1.25) mg/dL Estimated GFR > 60 (>60) mL/min BUN/Creatinine Ratio 23.2 H (6-22) Glucose 102 (80-110) mg/dL Calcium 8.8 (8.4-10.2) mg/dL Total Bilirubin 0.6 (0.2-1.3) mg/dL AST 49 (17-59) IU/L ALT 74 H (<50) IU/L Alkaline Phosphatase 84 (38-126) U/L Total Creatine Kinase 51 L (55-170) U/L CK-MB (CK-2) TNP CK-MB (CK-2) Rel Index TNP Troponin I < 0.012 (0.01-0.034) ng/mL C-Reactive Protein 1.5 H (<1.0) mg/dL NT-Pro-B Natriuret Pep (<125) pg/mL Total Protein 7.7 (6.3-8.2) g/dL Albumin 4.1 (3.5-5.0) g/dL Globulin 3.6 (1.7-4.1) g/dL Albumin/Globulin Ratio 1.1 (1.0-2.8) Triglycerides (35-150) mg/dL Cholesterol (140-199) mg/dL LDL Cholesterol, Calc (<100) mg/dL HDL Cholesterol (40-60) mg/dL SARS-CoV-2 (PCR) (Negative) Influenza A (RT-PCR) (NEGATIVE) Influenza B (RT-PCR) (NEGATIVE) RSV (PCR) (Negative) 05/28/22 05/28/22 05/28/22 Range/Units 13:20 13:20 13:20 WBC (4.5-11.0) X10^3/uL RBC (4.5-5.9) X10^6/uL Hgb (13.5-17.5) g/dL Hct (41-53) % MCV (80-100) fL MCH (26-34) PG MCHC (30-36) % RDW (11.6-14.8) % Plt Count (150-400) X10^3/uL Neut % (Auto) (50-75) % Lymph % (Auto) (25-40) % Love % (Auto) (3-14) % Eos % (Auto) (2-4) % Baso % (Auto) (0-2) % Neut # (Auto) (7115-0814) /uL Lymph # (Auto) (0304-1972) /uL Love # (Auto) (0-900) /uL Eos # (Auto) (0-450) /uL Baso # (Auto) (0-100) /uL PT (10.1-12.7) SECONDS INR (0.9-1.3) APTT (26-36) SECONDS D-Dimer (<500) ng/ml Sodium (137-145) mmol/L Potassium (3.4-5.1) mmol/L Chloride (98-107) mmol/L Carbon Dioxide (22-32) mmol/L BUN (9-20) mg/dL Creatinine (0.66-1.25) mg/dL Estimated GFR (>60) mL/min BUN/Creatinine Ratio (6-22) Glucose (80-110) mg/dL Calcium (8.4-10.2) mg/dL Total Bilirubin (0.2-1.3) mg/dL AST (17-59) IU/L ALT (<50) IU/L Alkaline Phosphatase (38-126) U/L Total Creatine Kinase (55-170) U/L CK-MB (CK-2) CK-MB (CK-2) Rel Index Troponin I (0.01-0.034) ng/mL C-Reactive Protein (<1.0) mg/dL NT-Pro-B Natriuret Pep 77 (<125) pg/mL Total Protein (6.3-8.2) g/dL Albumin (3.5-5.0) g/dL Globulin (1.7-4.1) g/dL Albumin/Globulin Ratio (1.0-2.8) Triglycerides 142 (35-150) mg/dL Cholesterol 104 L (140-199) mg/dL LDL Cholesterol, Calc 48 (<100) mg/dL HDL Cholesterol 28 L (40-60) mg/dL SARS-CoV-2 (PCR) Negative (Negative) Influenza A (RT-PCR) Flu a negative (NEGATIVE) Influenza B (RT-PCR) Flu b negative (NEGATIVE) RSV (PCR) Negative (Negative) Discharge Plan Departure Patient Disposition: Home Clinical Impression: Encounter for assessment for deep vein thrombosis (DVT) Instructions: Dehydration, Common Cold Activity Restrictions/Additional Instructions: *You have been diagnosed as abnormally normal. I do think that you had an episode of dehydration which caused some inflammation your cardiac workup today is negative for signs of a pulmonary embolism, DVT, acute cardiac event, or any metabolic worsening. Your D-dimer today was 570, this is not clinically significant when adjusted for your age but could be related to a clot of some type, it most likely is related to your vaccination and your immune response. There is nothing to change as far as we could find on your labs today other than staying hydrated. Your COVID, influenza and RSV tests are negative. Your chest x-ray is negative for acute problems and your lungs appeared clear. Please follow-up with your cardiac surgeon as needed, continue on your regimen. Your BNP was 77 so this does not appear to be a fluid overload problem or worsening of your heart failure either. I wish you the best, thank you for your patience today. *What to do: *Please continue to take your regular medications as directed. [ ] New medication prescriptions sent to your pharmacy: [ ] [ ] New medication written as a paper prescription [x ] No new medications given *Please follow up with your primary care provider in 2-3 days, call for an appointment. Let them know you were seen in the Emergency Department and that we asked that you be seen for follow-up. We will electronically transmit a record of today's note if your PCP is in our system *If you do not have a primary care provider please contact [phone] to establish care with one of the [facility] primary care providers. *Return to Emergency Department if you should have any new, worsening, or concerning symptoms, such as [fever greater than 101F, chills, worsening pain, persistent vomiting or other bothersome symptoms]. Prescriptions: No Action atorvastatin 80 mg tablet 80 mg PO DAILY aspirin 81 mg tablet,chewable 162 mg PO DAILY Label Comments: CHEW AND SWALLOW 2 TABLETS BY MOUTH DAILY furosemide 20 mg tablet 20 mg PO DAILY metoprolol succinate 25 mg tablet extended release 24 hr 25 mg PO DAILY Label Comments: TAKE 1 TABLET BY MOUTH DAILY potassium chloride 10 mEq tablet,ER particles/crystals 10 meq PO DAILY Label Comments: TAKE 1 TABLET BY MOUTH DAILY metformin 500 mg tablet 1,000 mg PO BID cinnamon bark [Cinnamon] 500 mg Capsule 2,000 mg PO QAM cinnamon bark [Cinnamon] 500 mg Capsule 1,000 mg PO QPM Referrals: Bryan Waterman MD [Non-Staff] - Rusty Wells MD [Primary Care Provider] - Visit Report Forms: Patient Portal/API <Manisha Bain DO - Last Filed: 06/02/22 04:48> Cosign ED Attending Florature Attestation: I was immediately available in the department for consultation. Documentation has been reviewed.
[2022-05-28 13:36] LABS: Add Manual Diff / Slide Review NO; Basophils Absolute Auto 0 /uL (0-100); Basophils Percent Auto 0.4 % (0-2); Eosinophils Absolute Auto 400 /uL (0-450); Eosinophils Percent Auto 3.4 % (2-4); Hematocrit 44.9 % (41-53); Hemoglobin 15.6 g/dL (13.5-17.5); Lymphocytes Absolute Auto 3600 /uL (1100-4500); Lymphocytes Percent Auto 33.7 % (25-40); Mean Corpuscular HGB Conc 34.8 % (30-36); Mean Corpuscular Hemoglobin 30.2 PG (26-34); Mean Corpuscular Volume 86.9 fL (80-100); Monocytes Absolute Auto 1300 /uL (0-900); Monocytes Percent Auto 12.5 % (3-14); Neutrophils Absolute Auto 5300 /uL (1500-7000); Platelet Count 264 X10^3/uL (150-400); Red Blood Cell Count 5.17 X10^6/uL (4.5-5.9); White Blood Cell Count 10.6 X10^3/uL (4.5-11.0)
[2022-05-28 13:43] LABS: Prothrombin Time 11.7 SECONDS (10.1-12.7)
[2022-05-28 13:44] LABS: D Dimer 570 ng/ml (<500)
[2022-05-28 13:45] LABS: PTT Partial Thromboplastin Tim 27 SECONDS (26-36)
[2022-05-28 13:49] LABS: Alanine Aminotransferase 74 IU/L (<50); Albumin 4.1 g/dL (3.5-5.0); Albumin Globulin Ratio 1.1 (1.0-2.8); Alkaline Phosphatase 84 U/L (38-126); Aspartate Aminotransferase 49 IU/L (17-59); BUN Creatinine Ratio 23.2 (6-22); Bilirubin Total 0.6 mg/dL (0.2-1.3); Blood Urea Nitrogen 29 mg/dL (9-20); C-Reactive Protein Quant 1.5 mg/dL (<1.0); Calcium 8.8 mg/dL (8.4-10.2); Carbon Dioxide 26 mmol/L (22-32); Chloride 103 mmol/L (98-107); Creatine Kinase 51 U/L (55-170); Estimated Glomerular Filt Rate > 60 mL/min (>60); Globulin 3.6 g/dL (1.7-4.1); Glucose 102 mg/dL (80-110); HEMOLYSIS < 15 (0-50); Potassium 3.8 mmol/L (3.4-5.1); Sodium 138 mmol/L (137-145); Total Protein 7.7 g/dL (6.3-8.2)
[2022-05-28 13:56] LABS: NT-proBNP (BNP-Adult 18+) 77 pg/mL (<125)
[2022-05-28 13:58] LABS: Troponin I < 0.012 ng/mL (0.01-0.034)
--- NOTE | 2022-05-28 13:58 | DI.RAD.S_ITS ---
PROCEDURE: XR CHEST 2V INDICATIONS: exertional sob TECHNIQUE: 2 views of the chest were acquired. COMPARISON: [facility], CR, XR CHEST 1V, 12/09/2021, 23:11. FINDINGS: Surgical changes and devices: Patient is status post median sternotomy. The superior sternotomy wire is fractured as before. Lungs and pleura: Lungs are clear. No pleural effusions or pneumothorax. Mediastinum: Mediastinal contours are normal. Heart size is normal. Bones and chest wall: No suspicious bony abnormalities. Soft tissues appear unremarkable. IMPRESSION: No acute cardiopulmonary findings. Dictated by: Corin Tinoco M.D. on 05/28/2022 at 14:40 Approved by: Corin Tinoco M.D. on 05/28/2022 at 14:40
[2022-05-28 14:00] LABS: Cholesterol 104 mg/dL (140-199); HDL Cholesterol 28 mg/dL (40-60); LDL Cholesterol Calculated 48 mg/dL (<100); Triglycerides 142 mg/dL (35-150)
[2022-05-28 14:11] LABS: Influenza A - CEPHEID Flu A NEGATIVE (NEGATIVE); Influenza B - CEPHEID Flu B NEGATIVE (NEGATIVE); Respiratory Syncytial Virus Negative (Negative)
[2022-05-28 14:16] LABS: COVID-19 CEPHEID PCR (VTM/NP) Negative (Negative)
== END 2022-05-28 15:03 | disposition home or self-care (01) ==
PROVIDERS: Emergency Provider Nurse Practitioner Critical Care Medicine; PCP Internal Medicine
DX: I82.502 Chronic embolism and thrombosis of unspecified deep veins of left lower extremity (principal); I25.10 Atherosclerotic heart disease of native coronary artery without angina pectoris; I25.2 Old myocardial infarction; Z20.822 Contact with and (suspected) exposure to COVID-19
CPT/HCPCS: 0241U; 36415; 71046; 80053; 80061; 82550; 83880; 84484; 85025; 85379; 85610; 85730; 86140; 93005; 93971; 99283; 99284

== ENCOUNTER 2022-08-19 13:58 | Emergency (ER) | payer OTHER, SELFPAY ==
[2022-08-19 14:13] VITALS: BP 120/77; PULSE 79; RESP 20; O2SAT 98; BMI 29.1
[2022-08-19 15:30] LABS: COVID19 -Nasal RAPID POSITIVE (Negative)
--- NOTE | 2022-08-20 13:26 | ED.URI ---
HPI - URI/Sore Throat <Deana Jang PA-C - Last Filed: 08/20/22 13:32> General Chief Complaint: Upper Respiratory Symptoms Stated Complaint: coughing/N/fatigue T-4 Time Seen by Provider: 08/19/22 16:21 Source: patient Mode of arrival: Ambulatory History of Present Illness HPI Narrative: 62-year-old male with past medical history diabetes presents to the ED with 5 days of nasal congestion, cough. Patient states that he coughing for the past 3 weeks, however he had an acute worsening of his symptoms 5 days ago. Patient denies fever, chills, chest pain, shortness of breath, nausea, vomiting, diarrhea, lightheadedness, dizziness, syncope. Patient states that he came into the ED to be tested for COVID, since he did not want to go to work and get other people sick if he was positive. Related Data Home Medications Medication Instructions Recorded Confirmed aspirin 81 mg chewable tablet 162 mg PO DAILY 10/02/21 10/02/21 atorvastatin 80 mg tablet 80 mg PO DAILY 10/02/21 10/02/21 cinnamon bark 500 mg capsule 1,000 mg PO QPM 10/02/21 10/02/21 (Cinnamon) cinnamon bark 500 mg capsule 2,000 mg PO QAM 10/02/21 10/02/21 (Cinnamon) furosemide 20 mg tablet 20 mg PO DAILY 10/02/21 10/02/21 metformin 500 mg tablet 1,000 mg PO BID 10/02/21 10/02/21 metoprolol succinate 25 mg 25 mg PO DAILY 10/02/21 10/02/21 tablet,extended release 24 hr potassium chloride 10 mEq 10 meq PO DAILY 10/02/21 10/02/21 tablet,extended release(part/cryst) Previous Rx's Medication Instructions Recorded benzonatate 200 mg capsule 200 mg PO TID PRN cough #30 caps 08/19/22 Allergies Allergy/AdvReac Type Severity Reaction Status Date / Time No Known Drug Allergies Allergy Verified 10/02/21 09:41 Review of Systems <Deana Jang PA-C - Last Filed: 08/20/22 13:32> Review of Systems ROS Unobtainable: All systems reviewed & are unremarkable except as noted in HPI and below Constitutional Constitutional: Denies chills, Denies fatigue, Denies fever(s), Denies frequent falls, Denies lethargy and Denies weakness Eyes Eyes: Denies change in vision, Denies eye discharge, Denies irritation and Denies loss of vision ENT Ears, Nose, Mouth, and Throat: Denies change in voice, Denies dizziness, Reports nasal congestion, Denies neck pain, Denies sore throat and Denies throat swelling Cardiovascular Cardiovascular: Denies chest pain, Denies irregular heart rhythm, Denies lightheadedness, Denies palpitations, Denies dyspnea, Denies dyspnea on exertion and Denies orthopnea Respiratory Respiratory: Reports cough, Denies dyspnea, Denies dyspnea on exertion and Denies wheezing Gastrointestinal Gastrointestinal: Denies abdominal pain, Denies change in bowel habits, Denies diarrhea, Denies nausea and Denies vomiting Genitourinary Genitourinary: Denies hematuria, Denies flank pain, Denies urinary incontinence and Denies urinary urgency Musculoskeletal Musculoskeletal: Denies back pain, Denies muscle weakness, Denies neck pain, Denies numbness and Denies tingling Integumentary/Breasts Skin/Breast: Denies pruritus, Denies erythema, Denies rash and Denies wounds Neurologic Neurologic: Denies behavioral changes, Denies confusion, Denies dizziness, Denies frequent falls, Denies loss of vision, Denies numbness, Denies tingling and Denies weakness Psychiatric Psychiatric: Denies anxiety, Denies behavioral changes, Denies confusion, Denies depression, Denies homicidal ideation and Denies suicidal ideation Endocrine Endocrine: Denies fatigue, Denies flushing and Denies palpitations Hematologic/Lymphatic Hematologic/Lymphatic: Denies easy bruising Allergic/Immunologic Allergic/Immunologic: Denies urticaria, Denies throat swelling and Denies wheezing Patient History <Deana Jang PA-C - Last Filed: 08/20/22 13:32> Medical History Coronary artery disease Diabetes Surgical History History of krystina hole surgery (~1989) History of open heart surgery (~2020) Social History household members: spouse Smoking Status: Never smoker alcohol intake: current Smoking Status: Never smoker alcohol intake frequency: 0-2 drinks per day Substance Use Type: does not use Exam <Deana Jang PA-C - Last Filed: 08/20/22 13:32> Narrative Exam Narrative: Const General:?cooperative, healthy appearing and comfortable HENMT Head:?normal to inspection Ears:?hearing grossly normal bilaterally Nose:?external nose normal Face and sinus:?normal facial exam and sinuses nontender Mouth:?oral mucosae normal Throat:?posterior oropharynx normal Eyes General:?appearance normal, both eyes and all related structures Neck Neck:?normal visual inspection and no lymphadenopathy noted Resp Effort & Inspection:?normal respiratory effort Auscultation:?clear to auscultation bilaterally Cardio Rate:?regular rate Rhythm:?regular rhythm Neuro General:?patient alert, patient awake and patient oriented x3 Initial Vital Signs Initial Vital Signs: Vital Signs Pulse Rate 79 08/19/22 14:13 Respiratory Rate 20 08/19/22 14:13 Blood Pressure 120/77 08/19/22 14:13 Pulse Oximetry 98 08/19/22 14:13 Oxygen Delivery Method 08/19/22 14:13 <Andrew Link DO - Last Filed: 08/21/22 10:42> Initial Vital Signs Initial Vital Signs: Vital Signs Pulse Rate 79 08/19/22 14:13 Respiratory Rate 20 08/19/22 14:13 Blood Pressure 120/77 08/19/22 14:13 Pulse Oximetry 98 08/19/22 14:13 Oxygen Delivery Method 08/19/22 14:13 MDM - URI/Sore Throat <Deana Jang PA-C - Last Filed: 08/20/22 13:32> Lab Data Labs: Lab Results 08/19/22 Range/Units 14:20 SARS-CoV-2 (PCR) Positive H (Negative) MDM Narrative Medical decision making narrative: 62-year-old male with past medical history diabetes presents to the ED with 5 days of nasal congestion, cough. Concern for viral URI. Patient tested positive for COVID-19 in the emergency room. Patient is stable, with normal work of breathing and saturating in the high 90s. Supportive care discussed with patient. Prescribed Tessalon Perles for cough. ED return precautions were also discussed with patient. Patient verbalized understanding. Medical records reviewed:??yes Exam documented above, pertinent findings include:?no pertinent finding ? Lab Test results independently reviewed as above. Pertinent findings: COVID-19 positive ? Independently reviewed EKG as above: n/a ? Disposition: see below, along with detailed discharge instructions that have been reviewed with patient as well as indications for ED re-evaluation and additional outpatient follow up <Andrew Link DO - Last Filed: 08/21/22 10:42> Lab Data Labs: Lab Results 08/19/22 Range/Units 14:20 SARS-CoV-2 (PCR) Positive H (Negative) Discharge Plan Departure Patient Disposition: Home Clinical Impression: COVID-19 Instructions: COVID-19 Activity Restrictions/Additional Instructions: You were evaluated in the ED today for a cough, congestion. You tested positive for COVID-19 in the emergency room today. You may take Tylenol, ibuprofen for your symptoms. You may also take Tessalon Perles for the cough. If the Tessalon Perles are ineffective, you may take an [id number] cough syrup such as Delsym. Please continue to stay well hydrated. Please follow-up with your PCP in 3-5 days. Please return to the ED if you experience any chest pain or shortness of breath. Prescriptions: New benzonatate 200 mg capsule 200 mg PO TID PRN (Reason: cough) Qty: 30 0RF No Action atorvastatin 80 mg tablet 80 mg PO DAILY aspirin 81 mg tablet,chewable 162 mg PO DAILY Label Comments: CHEW AND SWALLOW 2 TABLETS BY MOUTH DAILY furosemide 20 mg tablet 20 mg PO DAILY metoprolol succinate 25 mg tablet extended release 24 hr 25 mg PO DAILY Label Comments: TAKE 1 TABLET BY MOUTH DAILY potassium chloride 10 mEq tablet,ER particles/crystals 10 meq PO DAILY Label Comments: TAKE 1 TABLET BY MOUTH DAILY metformin 500 mg tablet 1,000 mg PO BID cinnamon bark [Cinnamon] 500 mg Capsule 2,000 mg PO QAM cinnamon bark [Cinnamon] 500 mg Capsule 1,000 mg PO QPM Referrals: Rusty Wells MD [Primary Care Provider] - Stand Alone Forms: Patient Portal/API <Andrew Link DO - Last Filed: 08/21/22 10:42> [facility] Att[facility]: I was immediately available in the department for consultation. This documentation has been reviewed and I agree with assessment and plan. Supervised by Andrew Link DO
== END 2022-08-19 17:29 | disposition home or self-care (01) ==
PROVIDERS: Emergency Medicine; Emergency Provider Student in an Organized Health Care Education/Training Program; PCP Internal Medicine
DX: U07.1 COVID-19 (principal)
CPT/HCPCS: 87635; 99281; 99282; C9803